=== PATIENT | male | born 1960 | race Caucasian/White ===

== ENCOUNTER 2020-04-29 15:45 | Emergency (ER) | payer BC, OTHER ==
[2020-04-29] MEDS ORDERED: Sodium Chloride 0.9% 1,000 ML IV ONE ×2 (16:20→17:12)
--- NOTE | 2020-04-29 16:25 | EDM.PDOC ---
ED HPI GENERAL MEDICAL PROBLEM - General Chief Complaint: Chest Pain Stated Complaint: [facility] Time Seen by Provider: 04/29/20 16:12 Source of Information: Reports: Patient, RN Notes Reviewed History Limitations: Reports: No Limitations - History of Present Illness INITIAL COMMENTS - FREE TEXT/NARRATIVE: Patient is a 60-year-old male who is brought into the ER by [facility] [place] [facility] for the evaluation of his right flank/lower back pain. Patient notes this started last night, he did google some things, and thought maybe it could be his appendix. He states that the pain or discomfort sometimes settles into his chest, that seemed to be more oa congestion/pressure feeling and would rate this at a 2 out of 10. 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 He denies any shortness of breath at rest, but does complain about getting short of breath with exercise, he states he was mildly diaphoretic when the pain was at its worst, but he is not diaphoretic now. He is not had pain like this prior to yesterday. He does have a history of arthritis and does take meloxicam, and states he did take some of this last night and it seemed to help his back pain. He has had no fevers or chills, cough, or any nausea/vomiting/diarrhea. Chest Pain Score (Numeric/FACES): 2 - Related Data Allergies Allergy/AdvReac Type Severity Reaction Status Date / Time No Known Allergies Allergy Verified 04/29/20 15:58 Home Meds: Home Meds DULoxetine [Cymbalta] 60 mg PO DAILY 04/29/20 [History] Meloxicam 15 mg PO DAILY 04/29/20 [History] Rosuvastatin [Crestor] 10 mg PO DAILY 04/29/20 [History] Warfarin [Coumadin] 2.5 mg PO MOWEFRSA 04/29/20 [History] Warfarin [Coumadin] 5 mg PO SUTUTH 04/29/20 [History] Past Medical History Cardiovascular History: Reports: Stents Musculoskeletal History: Reports: Arthritis - Infectious Disease History Infectious Disease History: Reports: Measles Social & Family History - Tobacco Use Tobacco Use Status *Q: Never Tobacco User - Caffeine Use Caffeine Use: Reports: Coffee - Recreational Drug Use Recreational Drug Use: No ED ROS GENERAL - Review of Systems Review Of Systems: Comprehensive ROS is negative, except as noted in HPI. ED EXAM, GENERAL - Physical Exam Exam: See Below Exam Limited By: No Limitations General Appearance: Alert, WD/WN, No Apparent Distress Respiratory/Chest: No Respiratory Distress, Lungs Clear, Normal Breath Sounds, No Accessory Muscle Use, Chest Non-Tender Cardiovascular: Normal Peripheral Pulses, Regular Rate, Rhythm, No Murmur Peripheral Pulses: 2+: Radial (L), Radial (R) Extremities: Normal Inspection, Normal Capillary Refill Neurological: Alert, Oriented, Normal Cognition, No Motor/Sensory Deficits Psychiatric: Normal Mood, Flat Affect Skin Exam: Warm, Dry, Intact, Normal Color, No Rash #1 Interpretation EKG Date: 04/29/20 Time: 15:49 Rhythm: NSR (sinus tach) Rate (Beats/Min): 108 [place]: LAD-Left [place] Deviation (-26 ) P-Wave: Present QRS: Normal ST-T: Normal QT: Normal Comparison: NA - No Prior EKG EKG Interpretation Comments: No obvious ischemia or acute ST changes noted, reviewed by myself and Dr. Solomon. Course - Vital Signs Last Recorded V/S: Last Vital Signs Temp 96.6 F L 04/29/20 19:39 Pulse 104 H 04/29/20 20:06 Resp 13 04/29/20 20:06 BP 113/70 04/29/20 20:06 Pulse Ox 100 04/29/20 15:52 - Orders/Labs/Meds Orders: Active Orders 24 hr Category Date Time Status CULTURE BLOOD [BC] Stat Lab 04/29/20 17:29 Received CULTURE BLOOD [BC] Stat Lab 04/29/20 17:45 Received UA W/MICROSCOPIC [URIN] Stat Lab 04/29/20 17:06 Ordered Blood Culture x2 Reflex Set [OM.PC] Stat Oth 04/29/20 17:11 Ordered Transfuse Fresh Frozen Plasma [COMM] Stat Oth 04/29/20 18:15 Ordered Transfuse Fresh Frozen Plasma [COMM] Stat Oth 04/29/20 18:15 Ordered Labs: Laboratory Tests 04/29/20 04/29/20 04/29/20 Range/Units 16:17 16:17 16:17 WBC 26.80 H (4.23-9.07) K/mm3 RBC 3.43 L (4.63-6.08) M/mm3 Hgb 10.2 L (13.7-17.5) gm/dl Hct 31.4 L (40.1-51.0) % MCV 91.5 (79.0-92.2) fl MCH 29.7 (25.7-32.2) pg MCHC 32.5 (32.2-35.5) g/dl RDW Std Deviation 48.0 H (35.1-43.9) fL Plt Count 511 H (163-337) K/mm3 MPV 10.9 (9.4-12.3) fl Neut % (Auto) 92.3 H (34.0-67.9) % Lymph % (Auto) 4.3 L (21.8-53.1) % [place] % (Auto) 3.0 L (5.3-12.2) % Eos % (Auto) 0 L (0.8-7.0) Baso % (Auto) 0.1 (0.1-1.2) % Neut # (Auto) 24.75 H (1.78-5.38) K/mm3 Lymph # (Auto) 1.14 L (1.32-3.57) K/mm3 [place] # (Auto) 0.80 (0.30-0.82) K/mm3 Eos # (Auto) 0.00 L (0.04-0.54) K/mm3 Baso # (Auto) 0.02 (0.01-0.08) K/mm3 Manual Slide Review Abnormal smear PT (9.7-12.0) SECONDS INR APTT (21.7-31.4) SECONDS Sodium 141 (136-145) mEq/L Potassium 4.5 (3.5-5.1) mEq/L Chloride 105 (98-107) mEq/L Carbon Dioxide 22 (21-32) mEq/L Anion Gap 18.5 H (5-15) BUN 22 H (7-18) mg/dL Creatinine 1.8 H (0.7-1.3) mg/dL Est Cr Clr Drug Dosing 42.75 mL/min Estimated GFR (MDRD) 39 (>60) mL/min BUN/Creatinine Ratio 12.2 L (14-18) Glucose 201 H (74-106) mg/dL Lactic Acid (0.4-2.0) mmol/L Calcium 8.7 (8.5-10.1) mg/dL Total Bilirubin 1.0 (0.2-1.0) mg/dL AST 31 (15-37) U/L ALT 27 (16-63) U/L Alkaline Phosphatase 60 (46-116) U/L CK-MB (CK-2) 1.5 (0-3.6) ng/ml Troponin I 0.027 (0.00-0.056) ng/mL C-Reactive Protein 0.3 (<1.0) mg/dL Total Protein 6.6 (6.4-8.2) g/dl Albumin 3.9 (3.4-5.0) g/dl Globulin 2.7 gm/dL Albumin/Globulin Ratio 1.4 (1-2) Lipase 118 (73-393) U/L Influenza Type A RNA (NEGATIVE) Influenza Type B RNA (NEGATIVE) SARS-CoV-2 RNA (ANGELA) (NEGATIVE) Blood Type Gel Antibody Screen 04/29/20 04/29/20 04/29/20 Range/Units 16:17 16:17 17:29 WBC (4.23-9.07) K/mm3 RBC (4.63-6.08) M/mm3 Hgb (13.7-17.5) gm/dl Hct (40.1-51.0) % MCV (79.0-92.2) fl MCH (25.7-32.2) pg MCHC (32.2-35.5) g/dl RDW Std Deviation (35.1-43.9) fL Plt Count (163-337) K/mm3 MPV (9.4-12.3) fl Neut % (Auto) (34.0-67.9) % Lymph % (Auto) (21.8-53.1) % [place] % (Auto) (5.3-12.2) % Eos % (Auto) (0.8-7.0) Baso % (Auto) (0.1-1.2) % Neut # (Auto) (1.78-5.38) K/mm3 Lymph # (Auto) (1.32-3.57) K/mm3 [place] # (Auto) (0.30-0.82) K/mm3 Eos # (Auto) (0.04-0.54) K/mm3 Baso # (Auto) (0.01-0.08) K/mm3 Manual Slide Review PT 81.3 H* (9.7-12.0) SECONDS INR 7.91 H* APTT 49.6 H (21.7-31.4) SECONDS Sodium (136-145) mEq/L Potassium (3.5-5.1) mEq/L Chloride (98-107) mEq/L Carbon Dioxide (21-32) mEq/L Anion Gap (5-15) BUN (7-18) mg/dL Creatinine (0.7-1.3) mg/dL Est Cr Clr Drug Dosing mL/min Estimated GFR (MDRD) (>60) mL/min BUN/Creatinine Ratio (14-18) Glucose (74-106) mg/dL Lactic Acid 4.1 H* (0.4-2.0) mmol/L Calcium (8.5-10.1) mg/dL Total Bilirubin (0.2-1.0) mg/dL AST (15-37) U/L ALT (16-63) U/L Alkaline Phosphatase (46-116) U/L CK-MB (CK-2) (0-3.6) ng/ml Troponin I (0.00-0.056) ng/mL C-Reactive Protein (<1.0) mg/dL Total Protein (6.4-8.2) g/dl Albumin (3.4-5.0) g/dl Globulin gm/dL Albumin/Globulin Ratio (1-2) Lipase (73-393) U/L Influenza Type A RNA (NEGATIVE) Influenza Type B RNA (NEGATIVE) SARS-CoV-2 RNA (ANGELA) (NEGATIVE) Blood Type B POSITIVE Gel Antibody Screen Negative 04/29/20 Range/Units 18:15 WBC (4.23-9.07) K/mm3 RBC (4.63-6.08) M/mm3 Hgb (13.7-17.5) gm/dl Hct (40.1-51.0) % MCV (79.0-92.2) fl MCH (25.7-32.2) pg MCHC (32.2-35.5) g/dl RDW Std Deviation (35.1-43.9) fL Plt Count (163-337) K/mm3 MPV (9.4-12.3) fl Neut % (Auto) (34.0-67.9) % Lymph % (Auto) (21.8-53.1) % [place] % (Auto) (5.3-12.2) % Eos % (Auto) (0.8-7.0) Baso % (Auto) (0.1-1.2) % Neut # (Auto) (1.78-5.38) K/mm3 Lymph # (Auto) (1.32-3.57) K/mm3 [place] # (Auto) (0.30-0.82) K/mm3 Eos # (Auto) (0.04-0.54) K/mm3 Baso # (Auto) (0.01-0.08) K/mm3 Manual Slide Review PT (9.7-12.0) SECONDS INR APTT (21.7-31.4) SECONDS Sodium (136-145) mEq/L Potassium (3.5-5.1) mEq/L Chloride (98-107) mEq/L Carbon Dioxide (21-32) mEq/L Anion Gap (5-15) BUN (7-18) mg/dL Creatinine (0.7-1.3) mg/dL Est Cr Clr Drug Dosing mL/min Estimated GFR (MDRD) (>60) mL/min BUN/Creatinine Ratio (14-18) Glucose (74-106) mg/dL Lactic Acid (0.4-2.0) mmol/L Calcium (8.5-10.1) mg/dL Total Bilirubin (0.2-1.0) mg/dL AST (15-37) U/L ALT (16-63) U/L Alkaline Phosphatase (46-116) U/L CK-MB (CK-2) (0-3.6) ng/ml Troponin I (0.00-0.056) ng/mL C-Reactive Protein (<1.0) mg/dL Total Protein (6.4-8.2) g/dl Albumin (3.4-5.0) g/dl Globulin gm/dL Albumin/Globulin Ratio (1-2) Lipase (73-393) U/L Influenza Type A RNA Negative (NEGATIVE) Influenza Type B RNA Negative (NEGATIVE) SARS-CoV-2 RNA (ANGELA) Negative (NEGATIVE) Blood Type Gel Antibody Screen Meds: Medications Discontinued Medications Generic Name Dose Route Start Last Admin Trade Name Freq PRN Reason Stop Dose Admin Factor IX (Pha) 4,300 unit 04/29/20 18:39 04/29/20 18:59 Kcentra IV 04/29/20 18:40 4,300 unit ONETIME ONE Administration Sodium Chloride 1,000 mls @ 999 mls/hr 04/29/20 16:20 04/29/20 16:42 Normal Saline IV 04/29/20 17:20 999 mls/hr ONETIME ONE Administration Sodium Chloride 1,000 mls @ 999 mls/hr 04/29/20 17:12 04/29/20 18:04 Normal Saline IV 04/29/20 18:12 999 mls/hr ONETIME ONE Administration Phytonadione 2 mg/ Sodium 51 mls @ 100 mls/hr 04/29/20 18:14 Chloride IV 04/29/20 18:44 ONETIME ONE Sodium Chloride Confirm 04/29/20 18:29 04/29/20 18:45 Normal Saline Administered 04/29/20 18:30 Not Given Dose 50 mls @ as directed .ROUTE .STK-MED ONE Phytonadione 2 mg/ Sodium 50.2 mls @ 98.431 mls/hr 04/29/20 18:45 04/29/20 18:44 Chloride IV 04/29/20 19:15 98.431 mls/hr ONETIME ONE Administration Iopamidol 100 ml 04/29/20 17:28 04/29/20 17:40 Isovue-300 (61%) IVPUSH 04/29/20 17:29 100 ml ONETIME ONE Administration Sodium Chloride 10 ml 04/29/20 17:40 04/29/20 17:41 Saline Flush FLUSH 10 ml ONETIME PRN Administration Keep Vein Open - Radiology Interpretation Free Text/Narrative:: CT abdomen and pelvis w/o contrast Technique: Multiple axial sections were obtained. Intravenous and oral contrast not utilized. Study was performed as a ureteral stone protocol. Reconstructed coronal and sagittal images were obtained. Findings: Increased density is identified within the posterior pararenal space extending slightly to the anterior pararenal space. This is most likely due to blood. This also continues into the pelvis with mild increased density within the pelvis being seen. Right kidney shows a very small calcification most likely representing minimal nonobstructing stone. Both ureters show no dilatation with no evidence of ureteral calculi. Visualized lung bases show nothing acute. Visualized portions of the liver contain no focal parenchymal abnormality. Gallbladder shows a small calcified gallstone. Spleen is normal. Pancreas is normal. Adrenal glands show no nodule. Aorta shows atherosclerotic calcification with no aneurysm. No retroperitoneal adenopathy is seen. No additional mesenteric abnormalities are appreciated. No pelvic mass is appreciated. Bone window settings were reviewed which shows mild degenerative change within the spine. No acute osseous abnormality is appreciated. Impression: 1. Fluid within the posterior right pararenal space pushing the right kidney anteriorly. Lesser density seen within the anterior pararenal space. This fluid is most likely due to fair amount of blood. 2. This blood extends into the pelvis. Etiology of this blood is not definitely appreciated on this exam. Consider IV contrast to further evaluate if no etiology is apparent clinically. Small nonobstructing gallstone within the gallbladder. Small nonobstructing calculus within the right kidney. 4. Other findings as noted above which are believed to be incidental. - Re-Assessments/Exams Free Text/Narrative Re-Assessment/Exam: 04/29/20 16:24 Patient presents to the ED for his abdomen pain. Patient has quite a flat affect and I am not really sure where the source of his pain started he notes it started in his back and now complains of some congestion in his chest. For today's purposes we will get some basic labs, EKG was obtained at time of triage demonstrates sinus tach but no other major abnormalities reviewed by myself and Dr. Solomon. Blood pressure still is on the low side of normal at 96 systolically when I went in to evaluate him. He will get a bolus of fluids, we will also get an abdomen pelvis CT without contrast for evaluation. 04/29/20 17:13 Patient CBC did come back quite elevated at 26,000, with 92% neutrophils. Due to his heart rate being tachycardic, and having hypotension. This does rule him in for sepsis criteria for the most part; He will get a second bolus IV fluids, have ordered lactate for sepsis with reflex, blood cultures, CRP, and other labs for evaluation. 04/29/20 17:28 CT has been done, and demonstrates blood within the pelvis, the radiologist cannot define where it is coming from. He does recommend doing one with IV contrast. veterinary technician assistant was still here and she will perform this urgently. We are giving plenty of fluids due to him ruling into sepsis criteria. Creatinine mildly elevated 1.8 and GFR was slightly low at 39. We will deal with that after the fact. 04/29/20 18:[address] with contrast and our radiologist seems to think that there is an area of bleeding coming from the psoas muscle, which would be compatible with a retroperitoneal bleed. Patient is on warfarin we will start on vitamin K, get a unit of fresh frozen plasma started. I did call her surgeon, Dr. Jaime barillas and he believes the patient would benefit from a higher level of care due to the possibility of needing IR and close follow-up. At this point in time we are checking on flight status as her ambulance was just sent out with another critical patient for transfer. 04/29/20 18:58 Was able to consult with multiple doctors at [facility], and ultimately Dr. Gross, the interventional radiologist does accept for transfer. patient will go to Dr. Simpson in the ER for initial management and then Dr. Gross will be dispatched from there. Patient has been started on vitamin K, fresh frozen plasma, and Kcentra for anticoagulation management. Patient's blood pressure is stable at 112/64, heart rate is 103 bpm, O2 sats 95% on room air. Patient is not complaining of too much pain, and seems in good spirits at this time. We will send him to [facility] in [place] via fixed wing flight through [facility]. Departure - Departure Time of Disposition: 19:00 Disposition: DC/Tfer to Acute Hospital 02 Reason for Transfer *Q: Other (acute retroperitoneal bleed, needs IR) Condition: Serious Clinical Impression: Retroperitoneal bleeding, Supratherapeutic INR Referrals: Mary Bloom MD [Primary Care Provider] - Forms: ED Department Discharge Sepsis Event Note (ED) - Evaluation Sepsis Screening Result: No Definite Risk - Focused Exam Vital Signs: Vital Signs Temp Temp Pulse Resp BP Pulse Ox 04/29/20 20:06 104 H 13 113/70 04/29/20 19:39 96.6 F L 104 H 22 H 111/64 04/29/20 15:52 98.0 F 104 H 18 107/63 100 - My Orders Last 24 Hours: My Active Orders 04/29/20 17:06 UA W/MICROSCOPIC [URIN] Stat 04/29/20 17:11 Blood Culture x2 Reflex Set [OM.PC] Stat 04/29/20 17:29 CULTURE BLOOD [BC] Stat 04/29/20 17:45 CULTURE BLOOD [BC] Stat 04/29/20 18:15 Transfuse Fresh Frozen Plasma [COMM] Stat Transfuse Fresh Frozen Plasma [COMM] Stat - Assessment/Plan Last 24 Hours: My Active Orders 04/29/20 17:06 UA W/MICROSCOPIC [URIN] Stat 04/29/20 17:11 Blood Culture x2 Reflex Set [OM.PC] Stat 04/29/20 17:29 CULTURE BLOOD [BC] Stat 04/29/20 17:45 CULTURE BLOOD [BC] Stat 04/29/20 18:15 Transfuse Fresh Frozen Plasma [COMM] Stat Transfuse Fresh Frozen Plasma [COMM] Stat
[2020-04-29] MEDS ORDERED: Sodium Chloride 0.9% 1,000 ML ONE (16:39)
[2020-04-29] MEDS ORDERED: Iopamidol 612 MG/ML 100 ML Bottle IVPUSH ONE (17:28)
--- NOTE | 2020-04-29 17:34 | CT ---
CT abdomen and pelvis Technique: Multiple axial sections were obtained from below the top of the liver inferiorly through the bladder. Intravenous and oral contrast was not utilized. Study was performed as a ureteral stone protocol. Reconstructed coronal and sagittal images were also obtained. Findings: Increased density is identified within the posterior pararenal space extending slightly to the anterior pararenal space. This is most likely due to blood. This also continues into the pelvis with mild increased density within the pelvis being seen. Right kidney shows a very small calcification most likely representing minimal nonobstructing stone. Both ureters show no dilatation with no evidence of ureteral calculi. Visualized lung bases show nothing acute. Visualized portions of the liver contain no focal parenchymal abnormality. Gallbladder shows a small calcified gallstone. Spleen is normal. Pancreas is normal. Adrenal glands show no nodule. Aorta shows atherosclerotic calcification with no aneurysm. No retroperitoneal adenopathy is seen. No additional mesenteric abnormalities are appreciated. No pelvic mass is appreciated. Bone window settings were reviewed which show mild degenerative change within the spine. No acute osseous abnormality is appreciated. Impression: 1. Fluid within the posterior right pararenal space pushing the right kidney anteriorly. Lesser density is seen within the anterior pararenal space. This fluid is most likely due to a fair amount of blood. 2. This blood extends into the pelvis. Etiology of this blood is not definitely appreciated on this exam. Consider IV contrast to further evaluate if no etiology is apparent clinically. 3. Small nonobstructing gallstone within the gallbladder. Small nonobstructing calculus within the right kidney. 4. Other findings as noted above which are believed to be incidental. Diagnostic code #5
[2020-04-29] MEDS ORDERED: Sodium Chloride 0.9% 10 ML Syringe FLUSH PRN (17:40)
--- NOTE | 2020-04-29 17:41 | CR ---
Chest: Portable view of the chest was obtained. Comparison: No previous chest x-rays are available. Heart size and mediastinum are normal. Sternotomy is noted for prosthetic valve. Lungs are clear with no acute parenchymal change. Bony structures are grossly intact. Impression: 1. Nothing acute is seen on portable chest x-ray. Diagnostic code #2
--- NOTE | 2020-04-29 18:14 | CT ---
CT abdomen and pelvis Technique: Multiple axial sections were obtained from above the dome of the diaphragm inferiorly through the pubic symphysis. Intravenous contrast was utilized. No oral contrast was given. Comparison: Previous noncontrast CT abdomen and pelvis study performed earlier on the same day (4:59 PM). Findings: Increased density is again seen within the right pararenal space pushing the right kidney anteriorly. Fluid is also noted within the pelvis. There are some enhancing vessels being seen within the periphery of an enlarged psoas muscle or within the pararenal space presumably representing an abnormal leaking vessel. Additional mild areas of enhancement are seen within this area compatible with fairly recent hematoma. Visualized lung bases show nothing acute. Contrast enhanced liver appears within normal limits. Spleen appears normal. Kidneys show symmetric contrast enhancement without hydronephrosis or mass. Pancreas shows no discrete abnormality. Fluid around the pancreas on prior study has diminished with no findings of pancreatitis. Aorta shows atherosclerotic change without aneurysm. No retroperitoneal adenopathy is seen. No other pelvic abnormality is seen. Delayed images were obtained which show contrast within the ureters and the bladder. Bone window settings were reviewed which show mild degenerative change without acute finding. Impression: 1. Findings compatible with previous blood. Some enhancement is seen within this area with what appears to be a small vessel within an enlarged psoas muscle or possibly within the hemorrhage. Findings are felt compatible with continuing acute bleed. Recommend surgical evaluation. 2. Continuing pararenal space hematoma extending into the pelvis. 3. Other findings as noted above which are incidental. Diagnostic code #5
[2020-04-29] MEDS ORDERED: Sodium Chloride 0.9% 50 ML ONE (18:29)
[2020-04-29] MEDS ORDERED: Factor IX Complex Human 500 UNIT VIAL IV ONE (18:39)
[2020-04-29 18:57] LABS: CORONAVIRUS COVID-19 NAA NEGATIVE (NEGATIVE)
== END 2020-04-29 20:09 ==
LOC: JD.ED 15:45
DX: R79.1 Abnormal coagulation profile (principal); R58 Hemorrhage, not elsewhere classified; M19.90 Unspecified osteoarthritis, unspecified site; R00.0 Tachycardia, unspecified; Z20.822 Contact with and (suspected) exposure to COVID-19; Z95.2 Presence of prosthetic heart valve; Z79.01 Long term (current) use of anticoagulants; Z79.899 Other long term (current) drug therapy
CPT/HCPCS: 0240U; 36415; 36430; 71045; 74176; 74177; 80053; 82553; 83605; 83690; 84484; 85025; 85610; 85730; 86140; 86850; 86900; 86901; 87040; 93005; 96365; 96368; 99285; C9132; J3430; J7030; P9017; Q9967; 93010